=== PATIENT | male | born 1995 | race Caucasian/White ===

== ENCOUNTER 2021-01-29 03:36 | Emergency (ER) | payer MEDICAID ==
[2021-01-29] MEDS ORDERED: Ketorolac 15 MG/ML SDV IM ONE (04:00)
[2021-01-29] MEDS ORDERED: Amoxicillin/Clavulanate K 875-125 MG Tab PO ONE (04:00)
[2021-01-29] MEDS ORDERED: Diphtheria,Pertussis(Acell),Tetanus Vaccine 0.5 ML Syringe IM ONE (04:01)
--- NOTE | 2021-01-29 05:14 | EDM.PDOC ---
ED HPI GENERAL MEDICAL PROBLEM - General Chief Complaint: Bite:Animal, Insect Stated Complaint: CAT BITE Time Seen by Provider: 01/29/21 04:01 - History of Present Illness INITIAL COMMENTS - FREE TEXT/NARRATIVE: CHIEF COMPLAINT(S): Cat bite HISTORY OF PRESENT ILLNESS: This is a 25-year-old man without any significant past medical history who comes to the emergency department with a chief complaint of cat bite. The patient is here and presents with his significant other states that the cat that they own has recently become more aggressive. He states that the cat attacked him this evening while sleeping. He states that he got scratches on his both arms and the cat bit his right thumb. He states that he is right-hand dominant. He states the pain is achy and rated 7 out of 10 in his right thumb. There is no numbness, tingling, weakness. He states that this did happen prior to arrival. He has not yet taken any pain medication. He states the pain is worsened when you touch it. He denies any relieving factors. He states that he does not know his tetanus status. They state that the cats vaccines are not up-to-date however the cat is an indoor cat. REVIEW OF SYSTEMS: Constitutional: Denies fever, chills. Eyes: Denies eye pain Ears, Nose, Mouth, & Throat: Denies earache Cardiovascular: Denies chest pain Respiratory: Denies shortness of breath Gastrointestinal: Denies Nausea, vomiting, diarrhea, hematochezia. Genitourinary: Denies hematuria Skin: Positive for cat scratches and cat bite to bilateral upper arms and a puncture wound to the patient's right thumb MSK: Positive for right thumb pain Neurological: Denies blurred vision, numbness, tingling, weakness Psychiatric: Denies depression PAST MEDICAL HISTORY: As per history of present illness and as reviewed below otherwise noncontributory. SURGICAL HISTORY: As per history of present illness and as reviewed below otherwise noncontributory. SOCIAL HISTORY: As per history of present illness and as reviewed below otherwise noncontributory. FAMILY HISTORY: As per history of present illness and as reviewed below otherwise noncontributory. EXAMINATION OF ORGAN SYSTEMS/BODY AREAS: Constitutional: Blood pressure was 113/67, heart rate 74, respiratory rate 16 with an oxygen saturation of 98% on room air. Temperature 36.7 General: Well-appearing young man who is in no acute distress Psychiatric: Appropriate mood and affect. Eyes: No scleral icterus or conjunctival erythema ENMT: Moist mucous membranes. No pharyngeal erythema Cardiovascular: Regular, rate, and rhythm. No gallops, murmurs, or rubs. Bilateral upper extremity pulses symmetric and intact. No peripheral edema. Distal capillary refill less than 2 seconds Respiratory: Lungs clear to auscultation bilaterally. No wheezes, rales, or rhonchi. Gastrointestinal: Soft, non-tender, non-distended. Normoactive bowel sounds Genitourinary: No suprapubic tenderness Musculoskeletal: Normal range of motion. Skin: There are multiple cat scratches to the patient's bilateral upper extremities and a puncture wound which appears to be a bite on the patient's plantar aspect of his right thumb without any active bleeding. The patient is able to fully flex and extend his right thumb however there is significant tenderness with this. No decreased range of motion. Distal sensation is intact Neurological: Alert, GCS 15 MEDICAL DECISION MAKING AND COURSE IN THE ED WITH INTERPRETATION/REVIEW OF DIAGNOSTIC STUDIES: This is a 25-year-old and without any significant past medical history who comes to the emergency department with cat bite and cat scratches especially to his dominant right thumb. At this time they had already cleaned to the areas at home. I did discuss I would like to obtain a right hand x-ray to evaluate for foreign body given that the patient was bitten by the cat. I did update the patient's tetanus status, provided him with his first dose of Augmentin and given a shot of Toradol for pain relief. I do not believe any further work-up is indicated. The radiological images were viewed by myself along with reading the report from the radiologist. Right hand x-ray does not reveal any fracture, dislocation or evidence of foreign body. After imaging I discussed the results with the patient. I encouraged the patient to use Tylenol Motrin for pain relief and to return for any worsening symptoms. He was given strict return precautions and was amenable to discharge and had no further questions. DISPOSITION: The patient was discharged home in stable condition. The patient will follow up with primary care physician CONDITION: Fair PROCEDURES: None FINAL IMPRESSION(S)/DIAGNOSES: 1. Acute right thumb cat bite wound #2. Acute bilateral arm cat scratches Piotr Aguiar M.D. right thumb Pain Score (Numeric/FACES): 7 - Related Data Allergies Allergy/AdvReac Type Severity Reaction Status Date / Time No Known Allergies Allergy Verified 01/29/21 03:49 Home Meds: Home Meds Amoxicillin/Clavulanate K [Augmentin 875-125 MG] 1 tab PO BID #14 tablet 01/29/21 [Rx] Past Medical History - Past Health History Medical/Surgical History: Denies Medical/Surgical History - Infectious Disease History Infectious Disease History: Reports: None Social & Family History - Family History Family Medical History: No Pertinent Family History - Tobacco Use Tobacco Use Status *Q: Never Tobacco User - Caffeine Use Caffeine Use: Reports: Coffee, Energy Drinks, Soda, Tea - Recreational Drug Use Recreational Drug Use: Yes Recreational Drug Type: Reports: Marijuana/Hashish Recreational Drug Use Frequency: Rarely ED ROS GENERAL - Review of Systems Review Of Systems: See Below ED EXAM, ANIMAL BITE - Physical Exam Exam: See Below Course - Vital Signs Last Recorded V/S: Last Vital Signs Temp 36.7 C 01/29/21 03:50 Pulse 74 01/29/21 03:50 Resp 16 01/29/21 03:50 BP 113/67 01/29/21 03:50 Pulse Ox 98 01/29/21 03:50 - Orders/Labs/Meds Meds: Medications Discontinued Medications Generic Name Dose Route Start Last Admin Trade Name Jus PRN Reason Stop Dose Admin Amoxicillin/Clavulanate Potassium 1 tab 01/29/21 04:00 01/29/21 04:11 Amoxicillin/Clavulanate K 875-125 Mg Tab PO 01/29/21 04:01 1 tab ONETIME ONE Administration Diphtheria/Tetanus/Acell Pertussis 0.5 ml 01/29/21 04:01 01/29/21 04:11 Diphtheria,Pertussis(Acell),Tetanus Vaccine 0.5 Ml Syringe IM 01/29/21 04:02 0.5 ml .ONCE ONE Administration Ketorolac Tromethamine 15 mg 01/29/21 04:00 01/29/21 04:11 Ketorolac 15 Mg/Ml Sdv IM 01/29/21 04:01 15 mg ONETIME ONE Administration Departure - Departure Time of Disposition: 05:38 Disposition: Home, Self-Care 01 Condition: Fair Clinical Impression: Cat scratch Cat bite of finger Qualifiers: Encounter type: initial encounter Qualified Code(s): S61.259A - Open bite of unspecified finger without damage to nail, initial encounter - Discharge Information *PRESCRIPTION DRUG MONITORING PROGRAM REVIEWED*: No *COPY OF PRESCRIPTION DRUG MONITORING REPORT IN PATIENT DEJA: No Prescriptions: Amoxicillin/Clavulanate K [Augmentin 875-125 MG] 1 tab PO BID #14 tablet Instructions: Animal Bite, Adult, [id number] Referrals: Becky Loya PA [Primary Care Provider] - Forms: ED Department Discharge Additional Instructions: You were evaluated today on an emergent basis. At this time you did have some cat scratches and a cat bite to your right thumb. At this time I do recommend that you use Augmentin twice a day for the next 7 days. Is important that you keep these areas clean with soap and water. Given that it does affect your right thumb I do want you to play close attention to this as an infection in this area can be serious. If you start noticing any increased redness, pus drainage, or increased pain with movement of your right thumb I would like you to return to the emergency department. Otherwise I would like you to follow-up with your primary care physician in 3 to 5 days for reevaluation. Please use: Tylenol 500-1000mg every 6 hours (DO NOT TAKE MORE THAN 4000mg in 1 day) Ibuprofen 400mg every 6 hours (Take with food as it can cause ulcers, GI upset) Example schedule: 8:00 AM (Tylenol 500-1000mg) 11:00 AM (Ibuprofen 400mg) 2:00 PM (Tylenol 500-1000mg) 5:00 PM (Ibuprofen 400mg) [facility] [address] [place] [address] [id number] [address] [address] The patient is informed of any results of their evaluation and diagnostic workup and all questions are answered. They are given discharge instructions and return precautions. The patient is stable for discharge. The patient states they understand and agree with the plan and that they will return if their symptoms get worse or if they have any new concerns. The following information is given to patients seen in the emergency department who are being discharged to home. This information is to outline your options for follow-up care. We provide all patients seen in our emergency department with a follow-up referral. The need for follow-up, as well as the timing and circumstances, are variable depending upon the specifics of your emergency department visit. If you don't have a primary care physician on staff, we will provide you with a referral. We always advise you to contact your personal physician following an emergency department visit to inform them of the circumstance of the visit and for follow-up with them and/or the need for any referrals to a consulting specialist. The emergency department will also refer you to a specialist when appropriate. This referral assures that you have the opportunity for follow-up care with a specialist. All of these measure are taken in an effort to provide you with optimal care, which includes your follow-up. Under all circumstances we always encourage you to contact your private physician who remains a resource for coordinating your care. When calling for follow-up care, please make the office aware that this follow-up is from your recent emergency room visit. If for any reason you are refused follow-up, please contact the [facility] at and asked to speak to the emergency department charge nurse. Sepsis Event Note (ED) - Evaluation Sepsis Screening Result: No Definite Risk
--- NOTE | 2021-01-29 05:18 | CR ---
INDICATION: Cat bite. Evaluate for foreign body. COMPARISON: None available. TECHNIQUE: The right hand is examined with PA, lateral, and oblique views. FINDINGS: There is no sign of fracture or dislocation. The soft tissues are normal in appearance without sign of radio-opaque foreign body. No degenerative disease is seen. IMPRESSION: Normal right hand. Dictated by Pal Gray MD @ 01/29/2021 5:17:[address] Pal Gray @ Jan 29 2021 5:17AM
== END 2021-01-29 05:39 | disposition home or self-care (01) ==
LOC: MW.ED 03:36
DX: S61.051A Open bite of right thumb without damage to nail, initial encounter (principal); S40.812A Abrasion of left upper arm, initial encounter; S40.811A Abrasion of right upper arm, initial encounter; Z23 Encounter for immunization; W55.01XA Bitten by cat, initial encounter
CPT/HCPCS: 73130; 90471; 90715; 96372; 99283; A9270; J1885

== ENCOUNTER 2023-01-17 20:30 | Emergency (ER) | payer MEDICAID ==
[2023-01-17] MEDS ORDERED: Meclizine 25 MG Tab PO ONE (22:00)
== END 2023-01-17 23:00 | disposition home or self-care (01) ==
LOC: MW.ED 20:30
DX: H81.10 Benign paroxysmal vertigo, unspecified ear (principal)
CPT/HCPCS: 99283; A9270

== ENCOUNTER 2023-07-22 04:00 | Emergency (ER) | payer SELFPAY ==
[2023-07-22] MEDS ORDERED: Ondansetron 4 MG/2 ML SDV IVPUSH ONE (04:58)
[2023-07-22] MEDS ORDERED: Sodium Chloride 0.9% 1,000 ML IV ONE (04:58)
[2023-07-22] MEDS ORDERED: Sodium Chloride 0.9% 10 ML Syringe FLUSH PRN (04:58)
[2023-07-22] MEDS ORDERED: Sodium Chloride 0.9% 2.5 ML Syringe FLUSH PRN (04:58)
[2023-07-22 05:17] LABS: BASOPHILS ABSOLUTE AUTO 0.02 K/uL (0.00-0.20); BASOPHILS PERCENT AUTO 0.2 % (0.0-1.0); EOSINOPHILS ABSOLUTE AUTO 0.11 K/uL (0.00-0.45); EOSINOPHILS PERCENT AUTO 1.4 % (0.0-6.0); HEMATOCRIT 43.6 % (42.0-52.0); HEMOGLOBIN 15.3 g/dL (14.0-18.0); IMMATURE GRAN ABSOLUTE AUTO 0.02 K/uL (0.00-0.05); IMMATURE GRAN PERCENT AUTO 0.2 % (0.0-0.4); LYMPHOCYTES ABSOLUTE AUTO 1.38 K/uL (1.00-4.80); LYMPHOCYTES PERCENT AUTO 17.2 % (24.0-44.0); MEAN CORPUSCULAR HEMOGLOBIN 29.9 pg (28.0-32.0); MEAN CORPUSCULAR HGB CONC 35.1 g/dL (32.0-36.0); MEAN CORPUSCULAR VOLUME 85.2 fL (83.0-99.0); MEAN PLATELET VOLUME 10.2 fL (9.4-12.4); MONOCYTES PERCENT AUTO 8.7 % (0.0-8.0); NEUTROPHILS ABSOLUTE AUTO 5.79 K/uL (1.80-7.70); NEUTROPHILS PERCENT AUTO 72.3 % (41.0-71.0); PLATELET COUNT,PLT 234 K/uL (150-400); RED BLOOD CELL COUNT 5.12 M/uL (4.52-5.90); WHITE BLOOD CELL COUNT,WBC 8.02 K/uL (3.9-11.3)
[2023-07-22 05:34] LABS: A/G RATIO 1.1 (0.9-1.6); ALBUMIN 4.1 g/dL (3.4-5.0); BILIRUBIN TOTAL 0.6 mg/dL (0.2-1.0); CARBON DIOXIDE,CO2 25.4 mmol/L (21.0-32.0); CREATININE 0.8 mg/dL (0.8-1.3); EST CRCL DRUG DOSING (CG) 116.71 mL/min; POTASSIUM,K 4.1 mmol/L (3.5-5.1); PROTEIN TOTAL,TP 7.8 g/dL (6.4-8.2)
[2023-07-22] MEDS ORDERED: Iopamidol 755 MG/ML 500 ML Multipack Bottle IVPUSH ONE (05:52)
== END 2023-07-22 07:28 | disposition home or self-care (01) ==
LOC: MW.ED 04:00
DX: K52.9 Noninfective gastroenteritis and colitis, unspecified (principal); K59.00 Constipation, unspecified; Z91.018 Allergy to other foods
CPT/HCPCS: 36415; 74177; 80053; 83690; 85025; 96361; 96374; 99284; J2405; J3490; J7030; Q9967